=== PATIENT | female | born 1965 | race Caucasian/White ===

== ENCOUNTER 2018-05-13 14:14 | Emergency (ER) | payer OTHER ==
[~2018-05-13] VITALS: Ht 154.9 cm; Wt 72.6 kg
[~2018-05-13 14:14] MED LIST: FISH OIL300 MG PO; GLUCOSAMINE1000 MG PO; MULTIVITAMINS1 EAC7 PO; SYNTHROID75 MCG PO
== END 2018-05-13 14:55 | disposition home or self-care (01) ==
LOC: ED 14:14
DX: M79.605 Pain in left leg (principal)